=== PATIENT | male | born 1965 | race Caucasian/White ===

== ENCOUNTER → 2018-09-20 | Outpatient (CLI) | payer BC | END | disposition home or self-care (01) | LOC: LABWHC1 08:46 | PROVIDERS: ATTEND Family Medicine | DX: R79.89 Other specified abnormal findings of blood chemistry (principal) | CPT/HCPCS: 36415; 82670; 84402; 84403; 84443; 84481 ==

== ENCOUNTER 2022-10-15 09:15 | Day surgery (SDC) | payer BC ==
[2022-10-12 13:03] VITALS: BMI 28.8
[2022-10-15] MEDS ORDERED: LACTATED RINGERS 1,000 ML IV ONE (09:31)
[2022-10-15] MEDS ORDERED: LACTATED RINGERS 1,000 ML IV SCH (09:34)
[2022-10-15 09:40] VITALS: RESP 16; TEMP 98
[2022-10-15] MEDS ORDERED: PROPOFOL 10 MG/ML 20 ML VIAL IV ONE (09:52)
--- NOTE | 2022-10-15 10:08 | P.GSHP ---
History of Present Illness H&P Date: 10/15/22 Chief Complaint: History of colon polyps This a 57-year-old male presents today for colonoscopy. Patient previous history of colon polyps. Past Medical History Past Medical History: Hyperlipidemia Additional Past Medical History / Comment(s): hx kidney stone., sensitive skin with histamine response History of Any Multi-Drug Resistant Organisms: None Reported Additional Past Surgical History / Comment(s): colonoscopy 5 yrs ago, tooth extraction sedation Past Anesthesia/Blood Transfusion Reactions: No Reported Reaction Past Psychological History: No Psychological Hx Reported Smoking Status: Never smoker Past Alcohol Use History: Occasional Past Drug Use History: None Reported - Past Family History Mother Family Medical History: No Reported History Medications and Allergies Home Medications Medication Instructions Recorded Confirmed Type Aspirin [Adult Low Dose Aspirin EC] 81 mg PO DAILY 10/12/22 10/15/22 History Atorvastatin [Lipitor] 10 mg PO DAILY 10/12/22 10/15/22 History Calcium/Magnesium/Zinc/D3 1 dose PO DAILY 10/12/22 10/15/22 History Glucosamine/Chondr Nino A Sod [Osteo 1 each PO DAILY 10/12/22 10/15/22 History Bi-Flex Caplet] Levocetirizine Dihydrochloride 5 mg PO Q48H 10/12/22 10/15/22 History [Xyzal] Multivitamins, Thera [Multivitamin 1 tab PO DAILY 10/12/22 10/15/22 History (formulary)] [place]-3 Fatty Acids [[place]berta-3] 690 mg PO DAILY 10/12/22 10/15/22 History Psyllium Husk (Unknown Dose) 1 dose PO DIRECTED 10/12/22 10/15/[address] Chand Wart (Unknown Dose) 1 dose PO DAILY 10/12/22 10/15/22 History diphenhydrAMINE [Benadryl] 25 mg PO DIRECTED PRN 10/12/22 10/15/22 History Allergies Allergy/AdvReac Type Severity Reaction Status Date / Time dust mites Allergy Unknown positive Uncoded 10/15/22 09:35 allergy testing Surgical - Exam Vital Signs Temp Pulse Resp BP Pulse Ox 98 F 80 16 150/67 97 10/15/22 09:39 10/15/22 09:39 10/15/22 09:39 10/15/22 09:39 10/15/22 09:39 - General well developed, well nourished, no distress - Eyes PERRL - ENT normal pinna - Neck no masses - Respiratory normal expansion - Cardiovascular Rhythm: regular - Abdomen Abdomen: soft, non tender Assessment and Plan Assessment: History: Polyps. We'll perform colonoscopy.
--- NOTE | 2022-10-15 10:09 | P.OP ---
Date of Procedure: 10/15/22 Preoperative Diagnosis: History of colon polyps Postoperative Diagnosis: Normal colon Procedure(s) Performed: Colonoscopy Anesthesia: MAC Surgeon: Doug Martinez Pathology: none sent Condition: stable Disposition: PACU Description of Procedure: PROCEDURE: The patient was placed on the endoscopy table in the lateral position. Digital rectal examination was performed which revealed no abnormalities. The prostate was symmetrical without nodules. Flexible colonoscope was then placed in the patient's anus and passed throughout the entire colon. The ileocecal valve was visualized. The cecum, ascending, transverse, descending and sigmoid colon were normal. The rectum was normal as well. There were no masses, polyps or diverticula noted in the entire colon. SUMMARY OF FINDINGS: Normal colonoscopy.
[2022-10-15 10:13] VITALS: PULSE 66
[2022-10-15 10:51] VITALS: BP 109/74
== END 2022-10-15 09:50 | disposition home or self-care (01) ==
LOC: ORWHC2ENDO 09:15
PROVIDERS: ATTEND Surgery
DX: Z12.11 Encounter for screening for malignant neoplasm of colon (principal); E78.5 Hyperlipidemia, unspecified; Z86.010 Personal history of colon polyps; Z87.442 Personal history of urinary calculi; Z98.890 Other specified postprocedural states; Z86.59 Personal history of other mental and behavioral disorders; Z79.82 Long term (current) use of aspirin; Z79.899 Other long term (current) drug therapy; Z88.9 Allergy status to unspecified drugs, medicaments and biological substances
CPT/HCPCS: 45378; J2704

== ENCOUNTER → 2024-03-14 | Outpatient (CLI) | payer BC ==
--- NOTE | 2024-03-20 09:54 | XR ---
EXAMINATION TYPE: XR chest 2V DATE OF EXAM: 03/14/2024 1:42 PM CLINICAL INDICATION: Male, 58 years old with history of R051 ACUTE COUGH; [facility] COMPARISON: None TECHNIQUE: XR chest 2V Frontal view of the chest. FINDINGS: Lungs/Pleura: There is no evidence of pleural effusion, focal consolidation, or pneumothorax. Pulmonary vascularity: Unremarkable. Heart/mediastinum: Cardiomediastinal silhouette is unremarkable. Musculoskeletal: No acute osseous pathology. Other findings: None IMPRESSION: No acute cardiopulmonary disease/process. [facility], , 03/20/2024 9:51 AM
== END | disposition home or self-care (01) ==
LOC: RADXRYALE 11:12
PROVIDERS: ATTEND Nurse Practitioner Family
DX: R05.1 Acute cough (principal)
CPT/HCPCS: 71046